=== PATIENT | male | born 1950 | race Two or more races ===

== ENCOUNTER 2024-12-06 11:58 | Emergency (ER) | payer OTHER ==
[~2024-12-06] VITALS: Ht 170.2 cm; Wt 83.9 kg
[~2024-12-06 11:58] MED LIST: COZAAR25 MG; LIPITOR20 MG
[2024-12-06 12:06] VITALS: BP 135/82; O2SAT 98
[2024-12-06] MEDS ORDERED: VIBRANT (12:11)
[2024-12-06] MEDS ORDERED: JARDIANCE25 MG (12:11)
[2024-12-06] MEDS ORDERED: NIZORAL SHAMPO120 ML (12:11)
[2024-12-06] MEDS ORDERED: MUPIROCIN15 GM (12:11)
[2024-12-06] MEDS ORDERED: DIPHENHYDRAMINE HCL 50 MG/ML VIAL 1ML IV ONE (13:15)
[2024-12-06] MEDS ORDERED: METHYLPREDNISOLONE SOD SUCC 125 MG VIAL IV ONE (13:15)
[2024-12-06 14:43] LABS: BASO % 1.0 % (0.1-1.2); EOS # 0.97 (0.04-0.54); EOS % 14.5 % (0.7-7.0); LYMPH # 1.75 (1.18-3.74); LYMPH % 26.2 % (19.3-53.1); MEAN PLATELET VOLUME 9.40 fl (9.4-12.4); MONO # 0.43 (0.24-0.82); MONO % 6.4 % (4.7-12.5); NEUT # 3.44 (1.56-6.13); NEUT % 51.8 % (34.0-71.1); RED CELL DISTRIBUTION WIDTH 14.1 % (11.6-14.4)
[2024-12-06 14:48] LABS: ERYTHROCYTE SEDIMENTATION RATE 16 mm/hr (0-20)
[2024-12-06 15:14] LABS: URINE APPEARANCE Clear; URINE BILIRRUBIN Negative (NEGATIVE); URINE BLOOD Negative; URINE COLOR Yellow; URINE GLUCOSE Negative (NEGATIVE); URINE KETONE Negative (NEGATIVE); URINE LEUKOCYTE Negative; URINE NITRATE Negative; URINE PROTEIN Negative (NEGATIVE); URINE UROBILINOGEN 0.2 E.U./dl
[2024-12-06 15:23] LABS: URINE BACTERIA 2.3 uL (0.0-1933); URINE CAST 0.00 uL (0.0-1.40); URINE EPITHELIAL CELLS 0.3 uL (0.0-38.8); URINE RBC 0.2 uL (0.0-20.8); URINE WBC 0.7 uL (0.0-23.2)
[2024-12-06 15:51] LABS: INR 1.0
[2024-12-06 15:55] LABS: ALT/SGPT 33 U/L (12-78); AST/SGOT 14 U/L (15-37); BILIRUBIN TOTAL 0.42 mg/dL (0.3-1.2); BUN CREA RATIO 17 (7.0-25.0); CREATININE SERUM 1.39 mg/dL (0.70-1.30); GFR 49.68; GLOBULINA 3.7 G/DL (2.4-3.5); GLUCOSE FASTING 113 mg/dL (65-100); OSMOLALITY SERUM 288 MOSM/KG (275-295)
[2024-12-06] MEDS ORDERED: ANTIFUNGAL113 GM TOP (16:14)
== END 2024-12-06 16:23 | disposition home or self-care (01) ==
LOC: ER 11:58
PROVIDERS: General Practice
DX: R21 Rash and other nonspecific skin eruption (principal); Z88.0 Allergy status to penicillin; Z91.013 Allergy to seafood